=== PATIENT | female | born 1965 | race African-American/Black ===

== ENCOUNTER 2021-04-21 15:23 | Emergency (ER) | payer MEDICAID ==
[~2021-04-21] VITALS: Ht 170.2 cm; Wt 82.0 kg
[2021-04-21] MEDS ORDERED: DIAZEPAM 5 MG TABLET PO ONE (15:45)
[2021-04-21] MEDS ORDERED: IBUPROFEN 800MG TABLET PO ONE (17:30)
[2021-04-21] MEDS ORDERED: TETANUS, DIPHTHERIA, PERTUSSIS VAC/PF 0.5ML (>7YR OLD) IM ONE (17:30)
[2021-04-21] MEDS ORDERED: TRAMADOL 50MG TABLET PO ONE (17:30)
[2021-04-21 17:31] VITALS: BP 160/102
[2021-04-21] MEDS ORDERED: IBUP-2030 MT (18:20)
[2021-04-21] MEDS ORDERED: METH-773 MT (18:20)
[2021-04-21] MEDS ORDERED: TRAM50TA MT (18:20)
== END 2021-04-21 18:34 | disposition home or self-care (01) ==
LOC: ER 15:23
DX: S00.83XA Contusion of other part of head, initial encounter (principal); S80.212A Abrasion, left knee, initial encounter; S80.211A Abrasion, right knee, initial encounter; E11.9 Type 2 diabetes mellitus without complications; Z79.899 Other long term (current) drug therapy; V49.88XA Car occupant (driver) (passenger) injured in other specified transport accidents, initial encounter; Y93.89 Activity, other specified; Y92.89 Other specified places as the place of occurrence of the external cause; Y99.8 Other external cause status
CPT/HCPCS: 70490; 73060; 73110; 90471; 90715; 99285